=== PATIENT | male | born 1945 | race Caucasian/White ===

== ENCOUNTER → 2020-02-25 | Outpatient (CLI) | payer SELFPAY ==
[~2020-02-25] MED LIST: CARV6.25 PO; DIAL1WAF PO; FERR240T PO; FOLI20CA PO; LANTINJ4 SC; LIPI20TA PO; METF-877 PO; MINO50CA3 PO; NEXI20TA PO; PLAV1TAB2 PO; RAMI1CAP24 PO; [UNRECOGNIZED DRUG - CODE] PO
== END ==
LOC: M LABSMTC 12:11
PROVIDERS: ATTEND Pediatrics
DX: Z20.828 Contact with and (suspected) exposure to other viral communicable diseases (principal)